=== PATIENT | female | born 1960 | race Caucasian/White ===

== ENCOUNTER 2022-07-10 07:03 | Day surgery (SDC) | payer OTHER ==
[~2022-07-10] VITALS: Ht 162.6 cm; Wt 78.9 kg
[2022-07-10] MEDS ORDERED: fentaNYL citrate 0.05 MG/ML VIAL ONE (08:35)
[2022-07-10] MEDS ORDERED: LIDOCAINE 2% 100 MG/5 ML UJET TP ONE (08:35)
[2022-07-10] MEDS ORDERED: MIDAZOLAM 2 MG/2 ML VIAL ONE (08:35)
[2022-07-10] MEDS ORDERED: fentaNYL citrate 0.05 MG/ML VIAL IVP ONE (09:50)
[2022-07-10] MEDS ORDERED: MIDAZOLAM 2 MG/2 ML VIAL IVP ONE (09:50)
== END 2022-07-10 10:05 | disposition home or self-care (01) ==
LOC: MDS 07:03 → MMU 07:04 → MDS 10:05
PROVIDERS: ATTEND Internal Medicine Gastroenterology
DX: D50.9 Iron deficiency anemia, unspecified (principal); K29.70 Gastritis, unspecified, without bleeding; R14.0 Abdominal distension (gaseous); I10 Essential (primary) hypertension; E78.5 Hyperlipidemia, unspecified; F32.A Depression, unspecified; M19.90 Unspecified osteoarthritis, unspecified site; E78.00 Pure hypercholesterolemia, unspecified; Z79.899 Other long term (current) drug therapy; Z20.822 Contact with and (suspected) exposure to COVID-19
CPT/HCPCS: 36415; 43239; 45378; 86677; 87426; J2250; J3010